=== PATIENT | female | born 1985 | race African-American/Black ===

== ENCOUNTER 2016-07-10 19:24 | Emergency (ER) | payer SELFPAY ==
[2016-07-10 19:46] VITALS: BP 101/67; PULSE 98; TEMP 100.5; BMI 17.1
--- NOTE | 2016-07-10 19:55 | EDPRACDOC ---
- General Information Chief Complaint: Flu-Like Symptoms Stated Complaint: GENERALIZED WEAKNESS Time Seen by Provider: 07/10/16 19:50 Information Source: Patient Mode Of Arrival: Car Home Medications: Home Medications Methylprednisolone [Medrol] 4 mg PO DAILY #1 tab.ds.pk 04/02/16 Tramadol HCl [Ultram] 50 mg PO Q6H #14 tab 04/02/16 Oseltamivir Phosphate [Tamiflu] 75 mg PO BID #5 capsule 07/10/16 Allergies/Adverse Reactions: Allergies Allergy/AdvReac Type Severity Reaction Status Date / Time promethazine HCl Allergy Anxiety Verified 07/10/16 19:45 [From Phenergan] - History of Present Illness Onset: 3 DAYS HPI: PT C/O 2-3 DAYS OF COUGH CONGESTION FEVERS CHILLS BODYACHES AND FATIGUE. PT STATES SIGNIFICANT OTHER WITH SAME SYMPTOMS. Shortness of Breath: Mild Relevant History of: Reports: None Cough: Reports: Non-productive Rhinorrhea: Reports: Clear Fever Severity/Quality: Reports: greater than 100.5 F Ear Symptoms: Reports: None Associated Signs & Symptoms: Reports: Cough, Fever, Nasal Symptoms, Sore Throat , Myalgia Oral Intake: Normal Urinary Output: Normal ED Past Medical History - History Reviewed Yes Nurses notes reviewed and agree except as marked Travel Outside of [place] in the Last 3 Months?: No - Patient Medical History Psychological History: Reports: Depression Surgical History: Reports: Appendectomy, Other (CSXN) - Social Medical History Smoking Status: Light tobacco smoker (less than 5/day) Social History: Reports: Marijuana Use ETOH: None Substance Abuse: None Lives With: Significant Other Lives In: Home EDM Review of Systems - Review of Systems ROS Negative Except as Marked: Yes All systems reviewed and were negative except as marked Constitutional: Chills, Fever, Other (MYALGIAS). negative: Fatigue, Loss of Appetite, Weakness Eyes: No Symptoms Reported. negative: Redness, Blurred Vision, Double Vision, Discharge, Pain, Light Sensitive, Photophobia Ears: No Symptoms Reported. negative: Pain, Hearing Loss, Drainage, Ear Pulling Throat: Pain. negative: Swelling Nose: Congestion, Discharge. negative: Abrasion, Bleeding, Deformity, Ecchymosis, Injection, Laceration, Swelling, Tender Mouth: No Symptoms Reported. negative: Pain, Drooling Respiratory: Cough. negative: Barky Cough, Brassy Cough, Hemoptysis, Shortness of Breath, Wheezing Cardiovascular: No Symptoms Reported. negative: Chest Pain, Palpitations, Syncope, Edema, Orthopnea, PND, Skin Mottling, Cyanosis Gastrointestinal: No Symptoms Reported. negative: Pain, Constipation, Nausea, Vomiting, Diarrhea, Melena, Formula Intolerance Genitourinary: No Symptoms Reported. negative: Dysuria, Hematuria, Frequency, Discharge, Bleeding, Testicular Pain, Neurological: No Symptoms Reported. negative: Headache, Dizziness, Seizure, Numbness, Weakness, Speech Difficulty, Gait Difficulty Musculoskeletal: No Symptoms Reported, Other (MYALGIAS). negative: Arm, Ankle, Back, Chestwall, Elbow, Forearm, Femur, Foot, Hand, Hip, Knee, Leg, Neck, Pelvis , Ribs, Shoulder, Wrist Integumentary: No Symptoms Reported. negative: Itching, Rash, Bruising, Wound Allergic/Immunologic: No Symptoms Reported. negative: Hives, Itching Hematologic: No Symptoms Reported. negative: Lymphadenopathy, Easy Bruising, Easy Bleeding Endocrine: No Symptoms Reported. negative: Weight Gain, Weight Loss Psychiatric: No Symptoms Reported. negative: Anxiety, Depression, Hallucinations, Insomnia, Suicidal - Physical Exam Constitutional: No apparent distress, Alert (Awake) Oriented to: Time, Person, Place Last recorded Vital Signs: Last Vital Signs Temp 100.5 F 07/10/16 19:43 Pulse 98 07/10/16 19:43 Resp 20 07/10/16 19:43 BP 101/67 07/10/16 19:43 Pulse Ox 100 07/10/16 19:43 Oxygen Pulse Oxygen Saturation 100 O2 Device Room Air Oxygen Flow Rate Fraction of Inspired Oxygen ( FIO2) - HEENT Head: Normal ( normocephalic) Eye Exam: Normal (PERRL, EOMI, Sclera white) Oropharynx: Red Tympanic Membrane: Normal ENT EAC: Normal TMJ: Normal Nose: Congestion, Discharge Neck: Normal (FROM, trachea at midline) - Respiratory/Cardiovascular Respiratory: Normal - CTA (BBS clear to auscultation without adventitious sounds ) Cardiovascular: Normal (RRR without murmur, gallop or rub) - GI Auscultation: Normal (NABS) Palpation: Normal (Soft,No rebound or guarding, non distended) Tenderness: Non tender Holland's Sign: Negative - Musculoskeletal Back: Normal (Non-Tender) Extremities: Normal (Normal tone, Pulses 2+ No cyanosis or edema, FROM) - Integumentary Skin: Normal, Warm, Dry Lymphatics: Normal (no adenopathy) - Neurologic Memory Impaired: Normal Motor Function: Normal (Normal tone, Pulses 2+ No cyanosis or edema, FROM) Cranial Nerve: Normal (CN II-X11 intact sensation, strength 5/5) Cerebellar: Normal Mood Description: Normal Perception: Normal - Differential Diagnosis Influenza A B, URI, Viral Decision Time to Discharge: 19:55 - Departure Disposition: Home Condition: Stable Final Diagnosis: Influenza-like illness Instructions: Viral Syndrome (ED) Education/Counseling Given To: Patient Education/Counseling Given Regarding: Diagnosis, Treatment, Prognosis, Follow Up Referrals: None,No Provider [Primary Care Provider] - One Week Prescriptions: Oseltamivir Phosphate [Tamiflu] 75 mg PO BID #5 capsule Additional Instructions: MOTRIN AND TYLENOL FOR FEVERS AND BODYACHES.
== END 2016-07-10 20:02 | disposition home or self-care (01) ==
LOC: ED 19:24 → EDMC 20:02
DX: J11.1 Influenza due to unidentified influenza virus with other respiratory manifestations (principal); F17.210 Nicotine dependence, cigarettes, uncomplicated; F12.10 Cannabis abuse, uncomplicated
CPT/HCPCS: 99283